=== PATIENT | male | born 1925 | race Caucasian/White ===

== ENCOUNTER 2017-01-10 11:21 | Observation (INO) | payer MEDICARE ==
[~2017-01-10] VITALS: Ht 188 cm; Wt 88.6 kg
[~2017-01-10 11:21] MED LIST: ENAL20TA81 PO; TAB-TAB PO; TERA5CAP34 PO
[2017-01-10 11:22] VITALS: BP 161/81; PULSE 32; RESP 17; O2SAT 100
[2017-01-10 11:25] VITALS: BP 152/87; PULSE 60; RESP 16; O2SAT 97
[2017-01-10 11:30] VITALS: BP 152/87; PULSE 56; RESP 16; O2SAT 97
[2017-01-10] MEDS ORDERED: SODIUM CHLORIDE 0.9% FLUSH 10 ML FLUSH IVF PRN (11:45)
[2017-01-10] MEDS ORDERED: LOSA25TA PO (11:52)
[2017-01-10] MEDS ORDERED: APIX2.5T PO (11:52)
[2017-01-10] MEDS ORDERED: GABA600T PO (11:52)
[2017-01-10] MEDS ORDERED: TERA5CAP3 PO (11:52)
[2017-01-10] MEDS ORDERED: BETI0.5S EACH EYE (11:52)
[2017-01-10 11:56] LABS: AUTOMATED NEUTROPHIL # 4.3 TH/MM3 (1.8-7.7); BASOPHIL % 0.6 % (0.0-2.0); EOSINOPHIL # 0.2 TH/MM3 (0-0.4); EOSINOPHIL % 2.4 % (0.0-4.0); HEMATOCRIT 36.9 % (39.0-51.0); HEMO FLAGS DIFF FINAL; LYMPH % 25.6 % (9.0-44.0); LYMPHOCYTE # 1.8 TH/MM3 (1.0-4.8); MEAN CELL VOLUME 96.7 FL (80.0-100.0); MEAN CORPUSCULAR HEMOGLOBIN 33.3 PG (27.0-34.0); MEAN CORPUSCULAR HGB CONC 34.4 % (32.0-36.0); MONO % 9.2 % (0.0-8.0); NEUT % 62.2 % (16.0-70.0); PLATELET COUNT 168 TH/MM3 (150-450); RED BLOOD COUNT 3.82 MIL/MM3 (4.50-5.90); RED CELL DISTRIBUTION WIDTH 14.4 % (11.6-17.2); WHITE BLOOD COUNT 6.9 TH/MM3 (4.0-11.0)
[2017-01-10 12:05] LABS: APTT (PATIENT) 29.2 SEC (24.3-30.1); PROTHROMBIN TIME - PATIENT 11.1 SEC (9.8-11.6)
[2017-01-10 12:10] LABS: ANION GAP 6 MEQ/L (5-15); AST (GOT) 27 U/L (15-37); BLOOD UREA NITROGEN 18 MG/DL (7-18); CHLORIDE 104 MEQ/L (98-107); GLOMERULAR FILTRATION RATE 53 ML/MIN (>89); MAGNESIUM 2.5 MG/DL (1.5-2.5); POTASSIUM 4.1 MEQ/L (3.5-5.1); SODIUM (NA) 141 MEQ/L (136-145)
[2017-01-10 12:15] LABS: ALKALINE PHOSPHATASE 97 U/L (45-117); ALT (GPT) 30 U/L (12-78); CREATINE KINASE 115 U/L (39-308); TOTAL BILIRUBIN ADULT 0.8 MG/DL (0.2-1.0)
[2017-01-10 12:27] LABS: CKMB 2.3 NG/ML (0.5-3.6)
[2017-01-10 12:30] VITALS: BP 144/62; PULSE 56; RESP 16; O2SAT 97
--- NOTE | 2017-01-10 12:55 | PD ---
HPI Chief Complaint: Cardiac Complaint Time Seen by Provider: 11:36 Travel History International Travel<30 days: No Contact w/Intl Traveler<30days: No Traveled to known affect area: No History of Present Illness HPI 89-year-old male presents with heart rate in the 30s at home. 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 Chawla who advised him to come here. He states he follows with him for atrial fibrillation. He states that he's had cardioversion for that couple years ago. He states that he is not having any symptoms other than feeling lightheaded and dizzy. He feels worse when he moves around. He denies other modifying factors. He takes eliquis for blood thinner, he is on timolol eye drops PFSH Past Medical History Hx Anticoagulant Therapy: Yes (ELIQUIS) Atrial Fibrillation: Yes Cancer: No Cardiovascular Problems: Yes (BRADYCARDIA, A-FIB ) Diabetes: No Diminished Hearing: No Glaucoma: No Hepatitis: No Hiatal Hernia: No Hypertension: Yes Medical other: Yes (BACK) Thyroid Disease: No Tetanus Vaccination: > 5 Years Influenza Vaccination: Yes (PT STATES WITHIN THE LAST 5 YEARS) Past Surgical History Abdominal Surgery: Yes (APPY,CHOLECYSTECTOMY,BILAT INGUINAL HERNIA REPAIR) Cardiac Surgery: No Cholecystectomy: Yes Ear Surgery: No Eye Surgery: Yes (CATARACT RIGHT EYE) Genitourinary Surgery: No Gynecologic Surgery: No Neurologic Surgery: Yes (LUMBAR FUSION X4) Oral Surgery: No Pacemaker: No Thoracic Surgery: No Other Surgery: Yes Social History Alcohol Use: Yes (OCC) Tobacco Use: Yes (CIGAR OCCASIONALLY) Substance Use: No Allergies-Medications (Allergen,Severity, Reaction): Coded Allergies: Demerol (Verified Allergy, Unknown, HYPOTENSION, 01/10/17) Reported Meds & Prescriptions Reported Meds & Active Scripts Active Reported Betimol Opth Drops (Timolol Opth Drops) 0.5% Soln 1 Drop EACH EYE HS Gabapentin 600 Mg Tab 600 Mg PO BID Terazosin (Terazosin HCl) 5 Mg Cap 5 Mg PO HS Losartan (Losartan Potassium) 25 Mg Tab 25 Mg PO DAILY Eliquis (Apixaban) 2.5 Mg Tab 2.5 Mg PO BID Review of Systems Except as stated in HPI: all other systems reviewed are Neg Physical Exam Narrative GENERAL: Well-nourished, well-developed patient. Well-appearing SKIN: Warm and dry. HEAD: Normocephalic and atraumatic. EYES: No injection or drainage. ENT: No nasal drainage noted. NECK: Supple, trachea midline. CARDIOVASCULAR: Bradycardic rate and regular rhythm RESPIRATORY: Breath sounds equal bilaterally. No accessory muscle use. GASTROINTESTINAL: Abdomen soft, non-tender, nondistended. EXTREMITIES: Edema noted to bilateral legs with left significantly greater than right-patient states 2 weeks ago had negative ultrasound NEUROLOGICAL: Awake and alert. Moves all extremities. Normal speech. Data Data Last Documented VS Vital Signs Date Time Temp Pulse Resp B/P Pulse Ox O2 Delivery O2 Flow Rate FiO2 01/10/17 13:30 60 16 159/79 97 Room Air Orders Electrocardiogram (01/10/17 ) Electrocardiogram (01/10/17 11:38) Ckmb (Isoenzyme) Profile (01/10/17 11:38) Complete Blood Count With Diff (01/10/17 11:38) Comprehensive Metabolic Panel (01/10/17 11:38) Magnesium (Mg) (01/10/17 11:38) Prothrombin Time / Inr (Pt) (01/10/17 11:38) Act Partial Throm Time (Ptt) (01/10/17 11:38) Troponin I (01/10/17 11:38) Chest, Single Ap (01/10/17 11:38) Ecg Monitoring (01/10/17 11:38) Bilateral Bp Monitoring (01/10/17 11:38) Iv Access Insert/Monitor (01/10/17 11:38) Oximetry (01/10/17 11:38) Sodium Chloride 0.9% Flush (Ns Flush) (01/10/17 11:45) Us Leg Venous Doppler Bilat (01/10/17 11:43) CKMB (01/10/17 11:40) CKMB% (01/10/17 11:40) Consult Cardiology (01/10/17 ) Admit Order (Ed Use Only) (01/10/17 13:46) Labs Laboratory Tests Test 01/10/17 11:40 White Blood Count 6.9 TH/MM3 Red Blood Count 3.82 MIL/MM3 Hemoglobin 12.7 GM/DL Hematocrit 36.9 % Mean Corpuscular Volume 96.7 FL Mean Corpuscular Hemoglobin 33.3 PG Mean Corpuscular Hemoglobin 34.4 % Concent Red Cell Distribution Width 14.4 % Platelet Count 168 TH/MM3 Mean Platelet Volume 10.0 FL Neutrophils (%) (Auto) 62.2 % Lymphocytes (%) (Auto) 25.6 % Monocytes (%) (Auto) 9.2 % Eosinophils (%) (Auto) 2.4 % Basophils (%) (Auto) 0.6 % Neutrophils # (Auto) 4.3 TH/MM3 Lymphocytes # (Auto) 1.8 TH/MM3 Monocytes # (Auto) 0.6 TH/MM3 Eosinophils # (Auto) 0.2 TH/MM3 Basophils # (Auto) 0.0 TH/MM3 CBC Comment DIFF FINAL Differential Comment Prothrombin Time 11.1 SEC Prothromb Time International 1.0 RATIO Ratio Activated Partial 29.2 SEC Thromboplast Time Sodium Level 141 MEQ/L Potassium Level 4.1 MEQ/L Chloride Level 104 MEQ/L Carbon Dioxide Level 31.0 MEQ/L Anion Gap 6 MEQ/L Blood Urea Nitrogen 18 MG/DL Creatinine 1.27 MG/DL Estimat Glomerular Filtration 53 ML/MIN Rate Random Glucose 80 MG/DL Calcium Level 8.7 MG/DL Magnesium Level 2.5 MG/DL Total Bilirubin 0.8 MG/DL Aspartate Amino Transf 27 U/L (AST/SGOT) Alanine Aminotransferase 30 U/L (ALT/SGPT) Alkaline Phosphatase 97 U/L Total Creatine Kinase 115 U/L Creatine Kinase MB 2.3 NG/ML Troponin I 0.04 NG/ML Total Protein 6.9 GM/DL Albumin 3.5 GM/DL MDM Medical Decision Making Medical Screen Exam Complete: Yes Emergency Medical Condition: Yes Medical Record Reviewed: Yes (past history confirmed) Interpretation(s) EKG is sinus bradycardia at 55 without STEMI criteria CBC & BMP Diagram 01/10/17 11:40 Last 24 hours Impressions Chest X-Ray 01/10/17 1138 Signed Impressions: Service Date/Time: January 11:38 - CONCLUSION: No acute cardiopulmonary abnormality is visualized. Max Yeboah MD u/s rle no dvt Differential Diagnosis Sinus bradycardia, electrolyte abnormality, medication effect Narrative Course Will check blood work, chest x-ray, ultrasound and reevaluate Patient has had heart rate in the 60s here, given dizziness and heart rate in the 30s at home patient agrees to observation with cardiac monitoring Patient wanting to go home. Dr. Chawla agrees to discharge. Offered observation but he is not wanting to stay. Ultrasound is still pending. Patient agrees to wait till ultrasound done Ultrasound images are up and no large blood clot noted, patient states needs to leave, patient gave his phone number and will be called if positive, given return instructions Physician Communication Physician Communication dr chawla came and evaluated patient and states patient can go home and follow with him in the office Diagnosis Primary Impression: Bradycardia Additional Impression: Leg edema, left Patient Instructions: General Instructions Additional Instructions: return as needed, follow with dr chawla as discussed with him, elevate leg at rest Med/Other Pt SpecificInfo: No Change to Meds Disposition: 01 DISCHARGE HOME Condition: Stable Chela Nguyễn MD January 10, 2017 12:55
[2017-01-10 13:30] VITALS: BP 159/79; PULSE 60; RESP 16; O2SAT 97
--- NOTE | 2017-01-10 14:13 | RADRPT ---
EXAM DATE/TIME: 01/10/2017 11:38 [facility] COMPARISON: No previous studies available for comparison. INDICATIONS : Chest pain MEDICAL HISTORY : None. SURGICAL HISTORY : None. ENCOUNTER: Initial ACUITY: 1 day PAIN SCORE: 3/10 LOCATION: Bilateral chest FINDINGS: 2 AP views of the chest demonstrate normal-sized cardiac silhouette. Multiple EKG lines overlie the p atient. There is mild elevation of the right hemidiaphragm. No pleural effusion, airspace consolidati on, or pneumothorax is identified. Bones and soft tissues demonstrate no acute finding. CONCLUSION: No acute cardiopulmonary abnormality is visualized. Max Yeboah MD on January 10, 2017 at 14:07 Board Certified Radiologist. This report was verified electronically.
[2017-01-10 14:30] VITALS: BP 153/89; PULSE 60; RESP 16; O2SAT 97
--- NOTE | 2017-01-10 16:30 | RADRPT ---
EXAM DATE/TIME: 01/10/2017 15:18 [facility] COMPARISON: No previous studies available for comparison. [facility] INDICATIONS : Bilateral leg swelling. MEDICAL HISTORY : Afib. Bradycardia. Hypertension. SURGICAL HISTORY : Appendectomy.Cholecystectomy. Bilateral inguinal hernia repair. Lumbar fusion. ENCOUNTER: Initial ACUITY: >1 year PAIN SCORE: 0/10 LOCATION: Bilateral leg. TECHNIQUE: Venous ultrasound of the left and right leg was performed from the inguinal ligament to the proximal calf. Real-time, color Doppler and spectral tracing, compression and augmentation techniques were us ed. FINDINGS: RIGHT LEG: There is normal compressibility of the deep venous system from the inguinal region to the proximal ca lf. No echogenic clot is seen in the lumen of the common femoral, femoral, popliteal, and posterior tibial veins. There is a normal response of the venous system to proximal and distal augmentation an d respiration. LEFT LEG: There is normal compressibility of the deep venous system from the inguinal region to the proximal ca lf. No echogenic clot is seen in the lumen of the common femoral, femoral, popliteal, and posterior tibial veins. There is a normal response of the venous system to proximal and distal augmentation an d respiration. CONCLUSION: No DVT of the right lower extremity. Max Rodríguez MD on January 10, 2017 at 16:28 Board Certified Radiologist. This report was verified electronically.
--- NOTE | 2017-01-11 15:49 | EKG ---
Date Performed: 01/10/2017 Time Performed: 11:33:58 PTAGE: 89 years EKG: SINUS BRADYCARDIA WITH OCCASIONAL VENTRICULAR PREMATURE COMPLEXES SEPTAL MYOCARDIAL INFARCT ION ABNORMAL ECG PREVIOUS TRACING : 07/29/2009 11.58 DOCTOR: Anatoliy Linares Interpretating Date/Time 01/11/2017 15:40:51
--- NOTE | 2017-01-11 17:59 | MB ---
cc: JOSH CHAWLA MD, ROXY MD DATE OF CONSULTATION 01/11/17 HISTORY OF PRESENT ILLNESS Thank you, Dr. Nguyễn, for asking me to see this very pleasant gentleman who is well-known to me. 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 At home, he noted his heart rate was 30-40, felt dizzy and because of his slow heart rate, he was advised to go to the emergency room. In the emergency room with a pulse ox, he was noted to have a heart rate of 40 but was noted on the monitor to have a heart rate of 50s or 60s. It seems that he has symptomatic PVCs and the PVCs are not conducted to the wrist accounting for the different heart rates. The patient has had a history of atrial fibrillation in the past. He was on flecainide and had heart block and, because of this, we were concerned that he might develop further bradycardia. He also has a history of aortic stenosis which is moderate to severe, atrial fibrillation for which she takes Eliquis at this time, although at this point he is not in atrial fibrillation. PAST MEDICAL HISTORY 1. Atrial flutter 2. Cardioversion 2013 3. Aortic stenosis. 4. Aortic valve disease 5. Sick sinus syndrome, 6. Hypertension, 7. History of syncope and collapse 8. Dizziness, 9. Neuropathy, 10. Lumbar radiculopathy 11. Prior history of cardioversion 12. Lumbar spine surgery FAMILY HISTORY Father 86 years of natural causes, mother same age unknown cause. SOCIAL HISTORY He [place] does not smoke, social alcohol. ALLERGIES None. REVIEW OF SYSTEMS Denies seizure, headache, vomiting, diarrhea, dysuria or hematuria. Remainder of 12 point review of systems negative. PHYSICAL EXAMINATION GENERAL: He is an elderly male, very pleasant, very sharp. VITAL SIGNS: Pulse was 60, blood pressure 159/79, respiratory rate 16. EYES: Showed no xanthelasma. Mouth showed no cyanosis or pallor. NECK: No jugular venous distention. HEART: Two heart sounds. No murmurs. CHEST: Clear. ABDOMEN: Soft, no hepatosplenomegaly. EXTREMITIES: No evidence of edema NEUROLOGIC: Grossly intact. SKIN: Intact. LABORATORY DATA White count was 6.9, hemoglobin 12.7, platelet count _68,000, BUN 18, creatinine 1.27. ASSESSMENT/PLAN At this point, he appears to be stable from a cardiac perspective. His lower extremity ultrasound showed no evidence of DVT. Since he is having some symptomatic PVCs but overall his blood pressure is stable. I feel he can be discharged. I will follow him closely in the next week or two. Thank you kindly for asking us see this very pleasant gentleman. Josh Chawla MD, FRCP,[facility]/ /5:31 PM /5:42 PM SUZY
== END 2017-01-10 16:25 | disposition home or self-care (01) ==
LOC: NEPC 11:21 → NEDA 13:47
PROVIDERS: ADMIT Hospitalist; ATTEND Hospitalist
DX: I49.3 Ventricular premature depolarization (principal); I48.91 Unspecified atrial fibrillation; I48.92 Unspecified atrial flutter; I49.5 Sick sinus syndrome; I10 Essential (primary) hypertension; G62.9 Polyneuropathy, unspecified; I35.0 Nonrheumatic aortic (valve) stenosis; F17.290 Nicotine dependence, other tobacco product, uncomplicated; Z88.5 Allergy status to narcotic agent; Z79.01 Long term (current) use of anticoagulants
CPT/HCPCS: 71010; 80053; 82550; 82552; 83735; 84484; 85025; 85610; 85730; 93005; 93970; 99285; G0378